=== PATIENT | male | born 1985 | race Caucasian/White ===

== ENCOUNTER → 2018-09-30 | Outpatient (CLI) | payer OTHER ==
--- NOTE | 2018-09-30 14:23 | MRI ---
MRI right shoulder without contrast INDICATION: Shoulder pain overuse. TECHNIQUE: Noncontrast MR imaging right shoulder FINDINGS: Tendinosis and mild interstitial partial tear subscapularis tendon. No bicep rupture or dislocation. Diffuse para labral cyst along the posterior labrum indicating nondisplaced labral tear. Mild AC joint osteoarthrosis. Tendinopathy supraspinatus and infraspinatus without rupture or retraction. Mild grade 1 marbling throughout the rotator cuff muscle bellies IMPRESSION: Mild AC joint osteoarthrosis Mild bursal edema Rotator cuff tendinopathy Chronic posterior labral tear with para labral cyst formation Mild interstitial partial tear and tendinosis subscapularis Electronically signed by: Jere Hart MD 09/30/2018 2:21 PM CDT
== END ==
LOC: MRI 10:33
PROVIDERS: ATTEND Nurse Practitioner Family
DX: M19.011 Primary osteoarthritis, right shoulder (principal); M75.31 Calcific tendinitis of right shoulder; S43.431A Superior glenoid labrum lesion of right shoulder, initial encounter